=== PATIENT | female | born 1990 | race Caucasian/White ===

== ENCOUNTER 2017-05-02 10:27 | Outpatient (CLI) | payer OTHER | END 2017-05-02 10:28 | disposition home or self-care (01) | LOC: LAB.R 10:27 | PROVIDERS: ATTEND Registered Nurse | DX: Z11.3 Encounter for screening for infections with a predominantly sexual mode of transmission (principal) | CPT/HCPCS: 87491; 87591 ==

== ENCOUNTER 2022-11-24 15:45 | Outpatient (CLI) | payer OTHER ==
--- NOTE | 2022-11-24 16:14 | Sleep Patient Instructions ---
Sleep Center Visit Summary - Patient Visit Information Reason for Visit: Initial consult for evaluation of sleep disordered breathing and other sleep issues. - Patient Instructions Instructions Attached: Sleep Study, Sleep Clinic Visit, Sleep Study Home Monitor Additional Instructions: You will be completing a sleep study, either an in-lab polysomnography (PSG) or home sleep study (HST). You will follow-up in the sleep care office after the sleep study is completed to hear the results and talk about therapy, if needed. You will be called by our office staff to schedule this appointment, but you may contact us with any questions. - Clinic Information Contact: [facility] [address] [place] [address] [email or web address] T: [phone]
--- NOTE | 2022-11-24 16:18 | SLEEP CARE CONSULTATION ---
Information from patient questionnaire entered by Roma Bowman. I have reviewed and concur with the information entered by Roma Bowman. This document represents the service I personally performed and the decisions made by me, Tamara Thrasher ARNP. History of Present Illness Service Date and Time: 11/24/2022 1545 Reason for Visit: New patient Chief Complaint: reports: Snoring, Excessive daytime sleepiness, Fatigue, Frequent awakenings at night Date of Onset: SEVERAL YRS, SNORING 2+YRS Usual bedtime: 10PM Time it takes to fall asleep: RIGHT AWAY USUALLY NO LONGER Snores at night: Yes Observed to quit breathing while asleep: Yes Sleeps alone due to snoring: Yes Number of times waking at night: 1-3 Reasons for waking at night: reports: Bathroom, Other (UNKNOWN, DOGS NEED OUT). denies: Choking, Snoring, Gasping for air Toss, Turn, or Twitch while sleeping: Yes Recalls having dreams: Yes Usually gets out of bed at: 0630-730AM; weekends 0830 Feels refreshed in the morning: No Morning headache: No Sleepy or fatigued during the day: Yes Ever fallen asleep while driving: Yes (drowsy driving; no accidents but some close calls) Takes day naps: Yes (2-3 times a week; 1 hour long) Dreams during day naps: Yes Prior sleep studies: No Additional HPI information: I had the pleasure of seeing ROBER RUIZ today regarding the possibility of her having a sleep disorder. Her current complaints are snoring, excessive daytime sleepiness, fatigue and frequent night awakenings. She states she feels exhausted all the time, even if she gets a full night's sleep. Her has been complaining of her snoring really loud and keeping him up. He has left the room to sleep. She states her father has sleep apnea and uses a machine. She has had times when her leg would twitch and wake her up and she noted that she was not breathing (big inhale of air). - Parasomnia Symptoms Ever been unable to move upon waking from sleep: Yes (if napping) Walks in sleep: No Talks in sleep: Yes Ever acted out dreams in sleep: Yes (sometimes, some small hand movements) Ever felt weak in the knees when startled or emotional: No Bothered by creepy, crawly, restless sensations in legs: Yes (not often; less now she is more active; at night when happens) Problems with memory or concentration: Yes (slight concentration in the past) Subjective Initial [place] Sleepiness Scale score: 15 (11/23/22) Past Medical History Past Medical History: reports: Anemia (possible as teenager), Other (gestational diabetes with first ) Social History The patient's occupation is a RN. Patient is and lives in . Have you smoked in the past 12 months: No Years of smokin Quit date: 2020 Alcohol use: Yes Alcohol amount and frequency: 1-2 DRINKS WEEKLY OR LESS Caffeine use: Yes Caffeine amount and frequency: 2+CUPS COFFEE EVERY DAY Family History Family history of sleep disordered breathing: Yes Family Hx Sleep Apnea: Mother: Snoring, Father: Snoring, Sleep apnea - Treated Allergies and Home Medications Known drug allergies: Yes (BACTRIM) Drug allergies reviewed: Yes Home medication list reviewed: Yes (no daily medications) Allergy and home medication list: Allergies Sulfa (Sulfonamide Antibiotics) Allergy (Verified 11/23/22 15:07) Olga Review of Systems Weight gain over past 5 years: 30 Cardiovascular: denies: high blood pressure Respiratory: reports: shortness of breath Gastrointestinal: reports: heartburn Urinary: reports: frequency Neurological: reports: headaches, disorientation, gait or balance problems Psychiatric: reports: anxiety, depression Ear/Nose/Throat: reports: wisdom teeth removed. denies: tonsillectomy Endocrine: reports: increased appetite. denies: thyroid disease Musculoskeletal: reports: back pain Immunologic: reports: allergies to food or environment (crab meat) Physical Exam Vital signs obtained and entered by: ROMA Ramiers MA Blood Pressure: 112/62 (LEFT ARM) Cuff size: regular Heart Rate: 79 O2 Saturation: 97 Height: 5 ft Weight: 178 lb 6.4 oz Body Mass Index: 34.8 BMI Classification: Obese Neck circumference: 14.75 Mouth and throat: narrow oropharynx Soft palate: long Hard palate: normal Uvula: normal Uvula visualization: 25% Mallampati Class III Tongue: enlarged in size with teeth rahman on lateral edges Tonsils: small Neck: normal w/o lymphadenopathy or thyromegaly Heart: regular rate and rhythm Lungs: clear bilaterally Impression and Plan 1. Suspected Obstructive Sleep Apnea-Hypopnea Syndrome, as suggested by a history of loud and irregular snoring, frequent awakening during the night, unrefreshed sleep, cognitive impairment, and excessive daytime sleepiness. Narrow oropharynx and obesity are common predisposing factors for obstructive sleep apnea-hypopnea syndrome. I recommend proceeding to polysomnography to confirm the diagnosis and to assess severity. If the patient has significant sleep disordered breathing, a manual CPAP titration study will also be performed to find the optimal treatment pressure. I informed the patient of what the sleep studies involve and after some discussion, obtained agreement to proceed. The pathophysiology of obstructive sleep apnea-hypopnea syndrome was discussed with the patient and health risks of cardiovascular and cerebrovascular disease if not treated. Risks of drowsy driving discussed in detail and patient advised to avoid long distance driving and to char puller at the first sign of drowsiness. Patient agreed to plan. * Schedule polysomnography +- manual CPAP titration study and return in 1-2 weeks after the study to discuss result and initiate therapy. * Avoid long distance driving or driving when feeling sleepy. * Avoid alcohol, sedative and muscle relaxant around bedtime. * Attempt to lose weight. * Review instructions provided by trained office staff on how to prepare for the sleep study. * Return for follow-up after sleep study completed. Counseling Topics: Weight loss health impact Visit Type: In Office Time Spent with Patient (minutes): 30 Provider Statement: I spent 100% of the Face to Face Visit with the patient with greater than 50% spent counseling the patient and coordination of care.
[2022-11-24 16:19] VITALS: BP 112/62
== END 2022-11-24 15:46 | disposition home or self-care (01) ==
LOC: SC 15:45
PROVIDERS: ATTEND Nurse Practitioner Family
DX: G47.10 Hypersomnia, unspecified (principal); R53.83 Other fatigue; G47.8 Other sleep disorders; R06.83 Snoring; E66.9 Obesity, unspecified; Z68.34 Body mass index [BMI] 34.0-34.9, adult; Z87.891 Personal history of nicotine dependence
CPT/HCPCS: 99203; 99212

== ENCOUNTER 2023-01-15 19:11 | Outpatient (CLI) | payer OTHER | END 2023-01-15 19:12 | disposition home or self-care (01) | LOC: SC 19:11 | PROVIDERS: ATTEND Nurse Practitioner Family | DX: G47.33 Obstructive sleep apnea (adult) (pediatric) (principal); E66.9 Obesity, unspecified; Z68.34 Body mass index [BMI] 34.0-34.9, adult | CPT/HCPCS: 95810 ==

== ENCOUNTER 2023-01-19 11:04 | Outpatient (CLI) | payer OTHER ==
--- NOTE | 2023-01-19 12:01 | Sleep Patient Instructions ---
Sleep Center Visit Summary - Patient Visit Information Reason for Visit: Sleep Study followup - Patient Instructions Instructions Attached: CPAP, CPAP Dc Additional Instructions: You are being started on CPAP therapy with pressure setting at 4-15 cmH2O. You will need to call the sleep care office to set up your follow up once you have your APAP machine and we will schedule a visit to check compliance and response to therapy at that time. You may call the office with any concerns about pressure feeling too low or too much for adjustment, if needed. You should contact DME for any questions or concerns about mask or equipment. Please follow up in the sleep care office one month after obtaining new CPAP. - Clinic Information Contact: [facility] [address] [place] [address] [email or web address] T: [phone]
--- NOTE | 2023-01-19 12:04 | SLEEP CARE CONSULTATION ---
Information from patient questionnaire entered by Roma Bowman. I have reviewed and concur with the information entered by Roma Bowman. This document represents the service I personally performed and the decisions made by me, Tamara Thrasher ARNP. History of Present Illness Service Date and Time: 01/19/2023 1104 Accompanied by: son Initial [place] Sleepiness Scale score: 15 (11/23/22) Current [place] Sleepiness Scale score: 12 (01/19/23) Additional HPI information: ROBER RUIZ returns for follow up and results of the recently performed polysomnography. Her sleep study showed mild obstructive sleep apnea with an average AHI of 11.1 and eyad oxygen saturation of 83%. I explained the pathophysiology behind obstructive sleep apnea. We then spent quite a bit of time discussing different treatment options. For mild obstructive sleep apnea, surgery and oral appliance are alternatives to nasal CPAP therapy but in moderate or severe cases, nasal CPAP is the most effective and reliable treatment. Because apnea is primarily in supine position, then positional management therapy could be effective. Methods discussed such as positioning with pillows, using a T-shirt with tennis balls in the back or commercial products that have a pillow format on back to prevent supine sleep. I reviewed the impact of weight changes on sleep apnea and strongly recommended losing weight. After some discussion, the patient opted to go with the nasal CPAP therapy. Nasal autoCPAP set at 4-15 cmH20 will be ordered with rationale explained. A manual titration study will be ordered if unable to find optimal pressure with office adjustments. I explained how CPAP machine works and what to expect when using the machine. Using CPAP every night in order to get used to it was emphasized. Patient advised to put CPAP mask on before getting into bed so as not to fall asleep without CPAP. To assist acclimation to CPAP use, it could also be used for a short time during day while reading or watching TV. The patient was instructed to call the CPAP supplier to discuss any mechanical problem that may occur. If the mask given is uncomfortable or is difficult to keep on through the night even with adjustment, contact the CPAP supplier as many will replace with another mask style if notified before 30 days. If snoring or perceives is not getting enough air or too much air from the machine, notify this office. Patient counseled not drink alcohol less than 4 hours before bedtime as it can increase snoring and apnea. Patient was cautioned about risks of drowsy driving until sleepiness symptoms resolve. Patient denies drowsy driving when working dayshift. Sleep Study - Results Type of Sleep Study: Polysomnography (COMPLETED 01/15/23) Prior sleep studies: No Polysomnography/Home Sleep Study results: IMPRESSION: The quality of the study is good. The patient had normal sleep efficiency. The sleep architecture was abnormal for sleep fragmentation and reduced amount of time spent in slow wave sleep (N3). Respiratory monitoring showed mild obstructive sleep apnea-hypopnea (AHI = 11.1) associated with frequent arousals, oxyhemoglobin desaturation and mild hypoxia (eyad oxygen saturation of 83%). The respiratory events occurred almost exclusively during supine sleep (supine AHI = 16.1; non-supine = 2.01). Snore was moderate to loud in intensity. There was no significant periodic leg movement of sleep. Cardiac rhythm was normal sinus rhythm without significant arrhythmia. No abnormal behavior (parasomnia) observed during the night. Allergies and Home Medications Known drug allergies: Yes (sulfa) Drug allergies reviewed: Yes Home medication list reviewed: Yes (no changes) Allergy and home medication list: Allergies Sulfa (Sulfonamide Antibiotics) Allergy (Verified 01/19/23 08:53) Hives Review of Systems Review of systems same as previous: Yes (no changes) Physical Exam Vital signs obtained and entered by: ROMA Ramires MA Blood Pressure: 124/70 (LEFT ARM) Cuff size: regular Heart Rate: 69 O2 Saturation: 99 Height: 5 ft Weight: 170 lb 9.6 oz Body Mass Index: 33.3 BMI Classification: Obese Impression and Plan 1. Obstructive Sleep Apnea-Hypopnea Syndrome, mild, with lowest oxygen saturation of 83%. Obviously this is the cause of the patients symptoms of unrefreshed sleep, and excessive daytime sleepiness. As mentioned above, the patient will be started on nasal autoCPAP therapy with pressure set at 4-15 cmH2 O. Compliance guidelines also reviewed. A copy of compliance guidelines will be given for reference at check out. Because the apnea is more severe supine, I instructed to avoid sleeping supine using pillow positioning until able to start CPAP use. 2. Hypoxemia, mild, with a eyad oxygen saturation of 83% and 5 minutes spent under 90%. Her baseline oxygen saturation was normal with an average oxygen saturation of 93%. 3. Obesity, unspecified. Currently patients BMI is 33.3. Obesity increases the risk of apnea, CPAP pressure requirements and overall health risks especially cardiovascular and diabetes. Thus patient is advised to lose weight. * Nasal auto CPAP therapy, pressure at 4-15 cm H2O. * Attempt to lose weight. * Avoid alcohol consumption near bedtime. * Avoid supine sleep until using CPAP. * The patient is again cautioned about driving until sleepiness completely resolves. * Return one month after CPAP obtained. I will assess response to therapy and compliance at that time. Counseling Topics: Sleeping position, Weight loss health impact Visit Type: In Office Time Spent with Patient (minutes): 21 Provider Statement: I spent 100% of the Face to Face Visit with the patient with greater than 50% spent counseling the patient and coordination of care.
[2023-01-19 12:05] VITALS: BP 124/70
== END 2023-01-19 11:05 | disposition home or self-care (01) ==
LOC: SC 11:04
PROVIDERS: ATTEND Nurse Practitioner Family
DX: G47.33 Obstructive sleep apnea (adult) (pediatric) (principal); R09.02 Hypoxemia; E66.9 Obesity, unspecified; Z68.33 Body mass index [BMI] 33.0-33.9, adult
CPT/HCPCS: 99212; 99213

== ENCOUNTER 2024-03-03 10:46 | Outpatient (CLI) | payer BC ==
[2024-03-03 17:49] LABS: THYROID STIMULATING HORMONE 1.37 uIU/mL (0.34-5.60)
[2024-03-03 17:54] LABS: PROLACTIN 12.57 ng/mL
[2024-03-04 07:10] LABS: PROGESTERONE 0.1 ng/mL (.)
[2024-03-04 09:10] LABS: ESTRADIOL 83.5 pg/mL (.)
== END 2024-03-03 10:47 | disposition home or self-care (01) ==
LOC: LAB.N 10:46
PROVIDERS: ATTEND Nurse Practitioner
DX: F32.81 Premenstrual dysphoric disorder (principal)
CPT/HCPCS: 36415; 82166; 82627; 82670; 83001; 83002; 83498; 84144; 84146; 84270; 84402; 84403; 84443